=== PATIENT | male | born 1965 | race Caucasian/White ===

== ENCOUNTER 2021-12-25 20:27 | Emergency (ER) | payer OTHER, SELFPAY ==
[2021-12-25 20:27] VITALS: BP 153/100; PULSE 67; RESP 14; TEMP 36.1; O2SAT 96; BMI 28.0
--- NOTE | 2021-12-25 20:52 | EDS_ITS ---
HPI History of Present Illness Chief Complaint: Chest Pain Narrative Narrative: Every [id number] male presenting with left-sided chest pain. He states it started after he ate red sauce with Posta and [place] sausage. He did not have significant dyspepsia but was thinking this was the cause. He states that he felt like it was a grab in his left lower chest wall moved her. He does not have any cardiac history. He does have a history of hypertension which is controlled with lisinopril 20 mg p.o. daily. He states that his father did have an CA but not at an early age. He states he is actively working out. He ran 3 miles earlier in the day without any difficulty. No history of DVT/PE and no risk factors. PFSH PFSH Home Medications glucosamine HCl 500 mg-msm 83 mg-chondroitin 400 mg tablet 1 ea PO DAILY 05/28/13 [History Last Taken Unknown] lisinopril 10 mg tablet 20 mg PO DAILY 05/28/13 [History Last Taken Unknown] omega-3 fatty acids-fish oil 300 mg-1,000 mg capsule 1 ea PO DAILY 05/28/13 [History Last Taken Unknown] Allergy/AdvReac Type Severity Reaction Status Date / Time No Known Allergies Allergy Verified 12/25/21 20:31 Social History Smoking Status: Never smoker ROS ROS ED Constitutional Constitutional ED: Denies chills or fever(s) Eyes Eyes: Denies blurry vision or change in vision ENT ENT ED: Denies rhinorrhea or sore throat Cardiovascular Cardiovascular: Reports as per HPI Respiratory/Chest Respiratory/Chest: Denies cough or dyspnea Gastrointestinal Gastrointestinal: Denies abdominal pain or constipation Genitourinary Genitourinary ED: Denies dysuria or hematuria Musculoskeletal Musculoskeletal: Denies arthralgias or back pain Integumentary Denies abscess or Abrasions Neurologic Neurologic: Denies headache(s) or paresthesias Psychiatric Psychiatric: Denies anxiety or depression EXAM Physical Exam Const Vital Signs: 12/25/21 20:27 12/25/21 20:35 12/25/21 21:23 Temperature 97.0 F L Temperature Source Temporal Pulse Rate 67 66 Respiratory Rate 14 17 Respiratory Effort Normal Blood Pressure 153/100 H 134/100 H Blood Pressure Mean 117 111 Pulse Ox 96 99 Oxygen Delivery Method Room Air Room Air Positive well nourished General Appearance ED: NAD; Negative for pallor HEENT Reports moist mucous membranes normocephalic and atraumatic Eyes PERRL and EOMs intact bilaterally Chest Wall inspection of chest normal and palpation of chest normal Resp normal respiratory effort and clear to auscultation bilaterally Cardio regular rate and regular rhythm GI normal to inspection, nondistended, normoactive bowel sounds Neuro oriented x3 and CN's II-XII intact bilaterally Sensorium / Orientation: awake and alert Motor Exam: strength 5/5 throughout Psych mental status grossly normal Skin no rashes or lesions noted and no wounds General Skin Exam: Negative for jaundice or pallor Heart Score History: Slightly/Non-Suspicious ECG: Normal Age: >45 - <65 years Risk Factors: 1 or 2 Risk Factors Score: 2 MDM MDM MDM Narrative Medical decision making narrative: Patient presenting with resolved chest pain. He states he had intermittent left upper chest wall pain that felt like grab after eating Posta with red sauce at a time and sausage. He does not describe dyspepsia. He states this lasted for about 30 minutes intermittently. He states that worsened every time he would try to move. He does not have any lightheadedness, dizziness, nausea, vomiting, diaphoresis. He has not been short of breath. Patient states he ran 3 miles earlier today. Patient states that his father had an CA however this was not at a young age. Patient states that he is a runner and works out regularly. No history of cardiac disease. HEART score is 2. EKG on my interpretation shows a normal sinus rhythm with ventricular to 68 bpm without sign of ischemic change or dysrhythmia. Chest x-ray on my interpretation shows no acute cardiopulmonary process and the radiologist agree. CBC within normal limits. BMP is also normal. High-sensitivity troponin returned at 8.. Patient currently awaiting delta troponin. He is currently pain-free. High-sensitivity delta troponin is 6. I feel this point the patient stable for discharge home. Patient counseled follow-up with his PCP for outpatient testing. Return precautions discussed. Impression: 1. Chest pain Lab Data Attestation: I reviewed the patient's lab results. Labs: Laboratory Results - last 24 hr 12/25/21 12/25/21 12/25/21 20:30 20:30 22:30 WBC 8.2 RBC 5.40 Hgb 16.1 Hct 47.3 MCV 87.6 MCH 29.8 MCHC 34.0 RDW Std Deviation 36.9 RDW Coeff of Jhonatan 11.5 L Plt Count 238 MPV 11.7 Immature Gran % (Auto) 0.200 Neut % (Auto) 56.4 Lymph % (Auto) 30.3 Pettis % (Auto) 9.8 Eos % (Auto) 2.9 Baso % (Auto) 0.4 Absolute Neuts (auto) 4.6 Absolute Lymphs (auto) 2.47 Nucleated RBC % 0 Sodium 142 Potassium 3.8 Chloride 106 Carbon Dioxide 28.0 Anion Gap 8 BUN 17 Creatinine 1.18 Estim Creat Clear Calc 73.03 Est GFR (MDRD) Af Amer 82 Est GFR (MDRD) Non-Af 68 BUN/Creatinine Ratio 14.4 Glucose 97 Calcium 9.4 Troponin I High Sens 8 6 Radiography Diagnostic Testing: Clinical Impression(s) from Imaging Studies Chest X-Ray 12/25/21 21:00 IMPRESSION: Normal x-ray examination of the chest. Electronically Signed: Mervat Rodrigues MD at 21:59 EDT Reading Location ID and State: [id number] / Tel , Service support , Discharge Plan Triage Chief Complaint: Chest Pain ED Provider: Robert Rdz Dx/Rx/DC Orders Prescriptions: No Action lisinopril 10 MG tablet 20 mg PO DAILY omega-3 fatty acids-fish oil 1 EACH capsule 1 ea PO DAILY glucosamine [id number] 1 EACH tablet 1 ea PO DAILY Primary Care Provider: Anum Kimball Referrals: Anum Kimball MD [Primary Care Provider] - Disposition Disposition: Home, Self Care
--- NOTE | 2021-12-25 20:52 | EKG12_ITS ---
Test Reason : CP Blood Pressure : / mmHG Vent. Rate : 068 BPM Atrial Rate : 068 BPM P-R Int : 156 ms QRS Dur : 092 ms QT Int : 396 ms P-R-T Axes : 048 006 034 degrees QTc Int : 421 ms Normal sinus rhythm Septal MD, age undetermined, cannot be excluded Confirmed by MARIE STORY, ASH ([id number]), newspaper managing editor ANDREW PEÑALOZA ([id number]) on 12/27/2021 9:26:19 AM Referred By: NATALY Confirmed By:ASH SALAZAR MD
[2021-12-25] MEDS: Aspirin 81 MG TAB.CHEW 324 MG PO (21:00)
--- NOTE | 2021-12-25 21:00 | RAD_ITS ---
STUDY: X-RAY CHEST REASON FOR EXAM: Male, 56 years old. chest pain TECHNIQUE: Single AP portable view of the chest. COMPARISON: None. FINDINGS: The lungs are clear and expanded. There is no demonstrated pleural abnormality. Normal size heart. Normal mediastinum and albert. Normal visualized pulmonary arteries. Normal visualized aortic arch and descending thoracic aorta. Normal visualized thoracic spine. Normal visualized ribs, clavicles, and shoulders. There is no demonstrated abnormality of the visualized soft tissue structures of the upper abdomen. RAD/Chest 1 View (Portable) IMPRESSION: Normal x-ray examination of the chest. Electronically Signed: Mervat Rodrigues MD at 21:59 EDT Reading Location ID and State: [id number] / Tel , Service support ,
[2021-12-25 21:08] LABS: Absolute Lymphocyte Count 2.47 X10^3/uL (0.83-4.51); Absolute Neutrophil Count 4.6 X10^3/uL (2.0-7.7); Basophil# 0.03 X10^3/uL; Basophil% 0.4 % (0-1); Eosinophil# 0.24 X10^3/uL; Eosinophils% 2.9 % (0-5); Hematocrit 47.3 % (40-54); Hemoglobin 16.1 g/dL (13.0-16.5); Lymphocyte # 2.47 X10^3/ul (0.83-4.51); Lymphocyte % 30.3 % (19-41); Mean Corpuscular Hgb 29.8 pg (27.0-32.0); Mean Corpuscular Volume 87.6 fL (80-94); Mean Platelet Vol. 11.7 fl (6.2-12.0); Monocyte% 9.8 % (0-10); NRBC Flagged by Analyzer 0 % (0-5); Neutrophil # 4.59 X10^3/uL (2.7-7.7); Neutrophil % 56.4 % (47-70); Platelet Count 238 K/mm3 (150-450); RBC Distribution Width CV 11.5 % (11.6-14.6); RBC Distribution Width SD 36.9 fl (35.1-43.9); White Blood Count 8.2 K/mm3 (4.4-11.0)
[2021-12-25 21:23] VITALS: BP 134/100; PULSE 66; RESP 17; O2SAT 99
[2021-12-25 21:30] LABS: Anion Gap 8 (5-15); BUN 17 mg/dL (7-18); BUN/Creat Ratio 14.4 RATIO (10-20); Calcium,Total 9.4 mg/dL (8.5-10.1); Chloride 106 mmol/L (98-107); Creatinine, Serum 1.18 mg/dL (0.70-1.30); EST Glomerular Filtration Rate 68 mL/min (>60); Est Glom Filt Rate - Afr Amer 82 mL/min (>60); Estimated Creatinine Clearance 73.03 ml/min; Glucose 97 mg/dL (74-106); Potassium 3.8 mmol/L (3.5-5.1); Sodium Level 142 mmol/L (136-145); Troponin-I HS (w/2H Reflex) 8 pg/mL (3.0-78.0)
[2021-12-25 23:03] LABS: Reflex Troponin-HS? (from REC) Y
[2021-12-25 23:26] LABS: Troponin-I HS 6 pg/mL (3.0-78.0)
[2021-12-25 23:56] VITALS: BP 124/85; PULSE 59
== END 2021-12-25 23:58 | disposition home or self-care (01) ==
PROVIDERS: Emergency Provider Student in an Organized Health Care Education/Training Program; PCP Internal Medicine; Visit Provider Student in an Organized Health Care Education/Training Program
DX: R07.9 Chest pain, unspecified (principal); I10 Essential (primary) hypertension; Z82.49 Family history of ischemic heart disease and other diseases of the circulatory system
CPT/HCPCS: 71045; 80048; 84484; 85025; 93005; 99285; A4216

== ENCOUNTER 2023-06-30 20:35 | Emergency (ER) | payer OTHER, SELFPAY ==
[2023-06-30 20:37] VITALS: BP 178/97; PULSE 84; RESP 19; TEMP 36.4; O2SAT 96; BMI 28.5
--- NOTE | 2023-06-30 21:08 | CT_ITS ---
EXAM: CT HEAD WITHOUT INTRAVENOUS CONTRAST CLINICAL INDICATION: TRAUMA TECHNIQUE: Multiple axial images were obtained of the head without intravenous contrast. CTDIvol = ( 44.99 ) mGy, DLP = ( 1365.60 ) mGycm This CT exam was performed using one or more of the following dose reduction techniques: automated exposure control, adjustment of the mA and/or kV according to patient size, and/or use of iterative reconstruction technique. COMPARISON: No relevant prior studies available. FINDINGS: BRAIN AND EXTRA-AXIAL SPACES: Unremarkable. No intra- or extra-axial hemorrhage. No evidence of acute infarct. No intracranial mass or mass effect. There is preservation of the curran/white matter interface. Posterior fossa structures are unremarkable. Ventricles are appropriate for age. No hydrocephalus. Basal cisterns are patent. BONES/JOINTS: Unremarkable. No discrete lytic or blastic abnormalities. SINUSES: Unremarkable as visualized. Clear. MASTOID AIR CELLS: Unremarkable. Clear. ORBITS: Visualized globes, extraocular muscles, optic nerves and retrobulbar fat appear unremarkable. Left lateral broad-based scalp edema/hematoma. CT/Brain/Head without Contrast IMPRESSION: No acute intracranial pathology. No acute calvarial fracture. Left lateral broad-based scalp edema/hematoma. Electronically Signed: Michael Smyth MD at 22:01 EDT ,
--- NOTE | 2023-06-30 21:08 | CT_ITS ---
EXAM: CT MAXILLOFACIAL WITHOUT INTRAVENOUS CONTRAST CLINICAL INDICATION: TRAUMA TECHNIQUE: Helically acquired images were obtained of the face without intravenous contrast. CTDIvol = ( 29.38 ) mGy, DLP = ( 1365.60 ) mGycm This CT exam was performed using one or more of the following dose reduction techniques: automated exposure control, adjustment of the mA and/or kV according to patient size, and/or use of iterative reconstruction technique. COMPARISON: No relevant prior studies available. FINDINGS: BONES/JOINTS: Degenerative changes of the cervical spine at multiple levels. No discrete lytic or blastic abnormalities. No acute facial fracture. SOFT TISSUES: Unremarkable. No focal subcutaneous swelling. No discrete fluid collections. ORBITS: Unremarkable. Both globes are unremarkable. Extraocular muscles are normal. Retrobulbar fat appears unremarkable. SINUSES: Mild scattered paranasal sinus mucosal thickening. No air-fluid levels above the paranasal sinuses. MASTOID AIR CELLS: Unremarkable as visualized. Clear. DENTAL: No acute findings. No periodontal osseous erosion. CT/Sinus/Facial Bone IMPRESSION: No acute or healing fracture or malalignment. Electronically Signed: Michael Smyth MD at 22:25 EDT ,
--- NOTE | 2023-06-30 21:09 | EX.ED.DYSGE1 ---
HPI History of Present Illness Chief Complaint: Head Injury Informant: patient and spouse/S.O. 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 No reported loss of consciousness. The patient notes some change in hearing of the left ear. He states the ear itself is not painful. Shortly after this happened he cleared his throat and there was some slight amount of blood with it. He notes a little bit of left jaw discomfort when he opens his mouth but notes that he did not get hit in that area. No vision changes. No nausea vomiting. He is not on anticoagulants. [facility] Medical History Hypertension Home Medications glucosamine HCl 500 mg-msm 83 mg-chondroitin 400 mg tablet 1 ea PO DAILY 05/28/13 [History Last Taken Unknown] lisinopril 10 mg tablet 20 mg PO DAILY 05/28/13 [History Last Taken Unknown] omega-3 fatty acids-fish oil 300 mg-1,000 mg capsule 1 ea PO DAILY 05/28/13 [History Last Taken Unknown] Allergy/AdvReac Type Severity Reaction Status Date / Time No Known Allergies Allergy Verified 06/30/23 20:39 Social History Smoking Status: Never smoker ROS ROS ED Constitutional Constitutional ED: Denies chills, fever(s) or weight loss Eyes Eyes: Denies blurry vision, change in vision or diplopia ENT ENT ED: Reports other Details: See history of present illness change in hearing blood with clearing throat ; Denies ear pain, rhinorrhea or sore throat Cardiovascular Cardiovascular: Denies chest pain, orthopnea, palpitations or racing heartbeat Respiratory/Chest Respiratory/Chest: Denies cough, dyspnea or orthopnea Gastrointestinal Gastrointestinal: Denies abdominal pain, diarrhea, nausea or vomiting Genitourinary Genitourinary ED: Denies dysuria, hematuria or urinary frequency Musculoskeletal Musculoskeletal: Denies arthralgias or myalgias Integumentary Denies abscess or rash Neurologic Neurologic: Reports headache(s) and other Details: No seizure ; Denies paresthesias or weakness Psychiatric Psychiatric: Denies anxiety, depression, suicidal ideation or suicidal thoughts Endocrine Endocrinology: Denies polydipsia, polyphagia or polyuria Allergic/Immunologic Allergic/Immunologic ED: Denies mouth swelling, tongue swelling or urticaria EXAM Physical Exam Const Vital Signs: 06/30/23 20:37 Temperature 97.6 F L Temperature Source Temporal Pulse Rate 84 Respiratory Rate 19 H Blood Pressure 178/97 H Blood Pressure Mean 124 Pulse Ox 96 Oxygen Delivery Method Room Air Positive well nourished and well developed General Appearance ED: well developed HEENT Reports normocephalic and moist mucous membranes HEENT Narrative: Small hematoma noted over the left parietal region. No palpable bony depression. I do not appreciate any hematomas of the ear. There is a small amount of blood behind the left tympanic membrane. No blood in the oropharynx noted. There is no focal tenderness along the mandible. He does note discomfort when I have him open and close. No malocclusion Eyes PERRL and EOMs intact bilaterally Neck no lymphadenopathy, supple and no JVD Resp normal respiratory effort and clear to auscultation bilaterally Cardio regular rate, regular rhythm and no murmurs GI normal to inspection, nondistended, normoactive bowel sounds and non-tender Palpation: soft Back/Spine no CVA tenderness and normal ROM Extremity normal to inspection General Extremety ED: Negative for edema General Extremity: Negative for edema Neuro oriented x3 and CN's II-XII intact bilaterally Sensorium / Orientation: alert Motor Exam: strength 5/5 throughout Psych mental status grossly normal Mood & Affect: Negative for depressed or tearful Skin no rashes or lesions noted and no wounds MDM MDM MDM Narrative Medical decision making narrative: CT of the brain and maxillofacial bones did not demonstrate any acute fracture or intracranial bleed. At this point patient be discharged home. Would recommend supportive care. Follow-up with ENT if hearing change does not resolve. History & Record Review Discussion w/independent historian: Patient and Significant other Radiography Diagnostic Testing: Clinical Impression(s) from Imaging Studies Brain CT 06/30/23 21:08 IMPRESSION: No acute intracranial pathology. No acute calvarial fracture. Left lateral broad-based scalp edema/hematoma. Electronically Signed: Michael Smyth MD at 22:01 EDT Reading Location ID and State: [facility] / [place] Tel , Service support , Facial/Sinus 06/30/23 21:08 IMPRESSION: No acute or healing fracture or malalignment. Electronically Signed: Michael Smyth MD at 22:25 EDT , Discharge Plan Triage Chief Complaint: Head Injury ED Provider: Sergey Phillips Dx/Rx/DC Orders Clinical Impression: Left parietal scalp hematoma, Hematotympanum of left ear, Head injury Instructions: ED Head Injury (Adult) Prescriptions: No Action lisinopril 10 MG tablet 20 mg PO DAILY omega-3 fatty acids-fish oil 1 EACH capsule 1 ea PO DAILY glucosamine [id number] 1 EACH tablet 1 ea PO DAILY Primary Care Provider: Anum Kimball Referrals: Best Gonzalez MD [Med Staff - Active Staff] - As Needed (Schedule appointment if your hearing change does not improve/resolve.) Anum Kimball MD [Primary Care Provider] - 1 Week
[2023-06-30 22:43] VITALS: BP 142/67; PULSE 74; RESP 18; TEMP 36.9; O2SAT 99
== END 2023-06-30 22:45 | disposition home or self-care (01) ==
LOC: ED 21:43
PROVIDERS: Emergency Provider Emergency Medicine; PCP Internal Medicine; Visit Provider Emergency Medicine
DX: S00.03XA Contusion of scalp, initial encounter (principal); W21.03XA Struck by baseball, initial encounter; Y93.64 Activity, baseball; I10 Essential (primary) hypertension; Z79.899 Other long term (current) drug therapy
CPT/HCPCS: 70450; 70486; 99282

== ENCOUNTER → 2024-06-01 | Outpatient (CLI) | payer OTHER, SELFPAY ==
--- NOTE | 2024-06-01 07:32 | US_ITS ---
EXAM: US Abdomen Limited, Right Upper Quadrant CLINICAL INDICATION: TECHNIQUE: Real-time ultrasound of the right upper quadrant with image documentation. COMPARISON: No relevant prior studies available. FINDINGS: LIVER: Liver measures 13.4 cm. Hepatopetal portal flow main portal vein. No intrahepatic bile duct dilation. GALLBLADDER: Cholelithiasis and gallbladder sludge. Barroso sign was not reported by the asp net mvc developer. COMMON BILE DUCT: Unremarkable as visualized. No stones. No dilation. Common bile duct measures 0.4 cm in diameter. PANCREAS: Unremarkable as visualized. RIGHT KIDNEY: Unremarkable. No stones. No hydronephrosis. The right kidney measures 12.2 x 6.8 x 5.8 cm. US/Abdomen Limited IMPRESSION: Cholelithiasis and gallbladder sludge. Reading [facility]
== END | disposition home or self-care (01) ==
PROVIDERS: PCP Internal Medicine; Referring Provider Nurse Practitioner Acute Care; Visit Provider Nurse Practitioner Acute Care
DX: R10.13 Epigastric pain (principal)
CPT/HCPCS: 76705

== ENCOUNTER 2024-07-17 12:17 | Day surgery (SDC) | payer OTHER, SELFPAY ==
[2024-07-17] VITALS (10 sets, daily range): BP systolic 123–149; BP diastolic 89–95; PULSE 64–96; RESP 16; TEMP 36.1–36.6; O2SAT 94–97; BMI 28.6
[2024-07-17] MEDS: Lactated Ringers 1,000 ML 15 ML IV (12:54)
--- NOTE | 2024-07-17 13:06 | PCM.PRE.AN2 ---
ASA Classification* ASA Classification ASA Classification: 1 Assessment & Plan Anesthesia* Anesthesia Assessment Anesthesia Assessment: Discussed sedation and/or anesthesia options, risks, benefits, and alternatives with patient/parents/legal guardian/POA. Questions invited. The patient/parents/legal guardian/POA seems to understand and agrees to proceed with anesthesia plan. Reviewed the physical assessment, medical history, allergy history and patient home medications list prior to surgery/procedure/anesthetic and documented any changes. Performed airway and anesthesia risk assessments. Anesthesia Type Anesthesia Type: MAC History Source History Obtained from:: Patient and Chart Anesthesia Focused Assessment* Temperature: 97.9 F Pulse Rate: 64 Blood Pressure: 149/95 Respiratory Rate: 16 Pulse Ox: 97 Oxygen Delivery Method: Room Air Airway Assessment Mouth opens: >3 cm Mallampati Score: I Teeth Condition: Intact Neck Range of motion (ROM): Full ROM Focused Labs Anesthesia Preop lab: CBC WBC 8.2 K/mm3 (4.4-11.0) 12/25/21 20:30 12/25/21 RBC 5.40 M/mm3 (4.6-6.2) 12/25/21 20:30 12/25/21 Hgb 16.1 g/dL (13.0-16.5) 12/25/21 20:30 12/25/21 Hct 47.3 % (40-54) 12/25/21 20:30 12/25/21 Plt Count 238 K/mm3 (150-450) 12/25/21 20:30 12/25/21 CHEMISTRY Potassium 3.8 mmol/L (3.5-5.1) 12/25/21 20:30 12/25/21 Sodium 142 mmol/L (136-145) 12/25/21 20:30 12/25/21 BUN 17 mg/dL (7-18) 12/25/21 20:30 12/25/21 Creatinine 1.18 mg/dL (0.70-1.30) 12/25/21 20:30 12/25/21 Glucose 97 mg/dL (74-106) 12/25/21 20:30 12/25/21 COAG Pre-Assessment Diagnosis/Proposed Procedure Planned Operative Procedure(s): EGD Anesthesia History 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 When Was Last Pacemaker Check QUESTION #4 FULL TEXT: You/Your Family Experience fever (hyperthermia) with Anesthesia Last Oral Intake Last Oral intake: Last Oral Intake NPO since 22:00 07/17/24 12:37 Meds taken in AM with sips of Yes 07/17/24 12:37 water? Meds patient instructed to take am of surgery PONV PONV - bad work gatherer: PONV - bad work gatherer Female No 07/14/24 12:44 HX of Motion Sickness No 07/14/24 12:44 HX of N/V After Surgery No 07/14/24 12:44 Non-Smoker No 07/14/24 12:44 Duration of Surgery greater No 07/14/24 12:44 than 60 minutes Number of Risk Factors PONV Score Height & Weight Height & Weight: Anesthesia: Height & Weight Height 5 ft 10 in 07/17/24 12:37 Weight: 90.5 kg 07/17/24 12:37 Body Mass Index (BMI) 28.6 07/17/24 12:37 Respiratory Assessment Respiratory Assessment - bad work gatherer: Respiratory Tract Infection Hx - bad work gatherer Hx Respiratory Tract Infection No 07/14/24 12:44 STOP Sleep Apnea STOP Sleep Apnea - bad work gatherer: STOP Sleep Apnea - bad work gatherer Hx Hypertension Yes 07/14/24 12:44 Hx Sleep Apnea No 07/14/24 12:44 CPAP BIPAP Do you snore loudly (louder No 07/14/24 12:44 than talking or can be heard Do you often feel tired/ No 07/14/24 12:44 fatigued/ sleepy during daytime? Has anyone observed you stop No 07/14/24 12:44 breathing during sleep? STOP Results Negative 07/14/24 12:44 QUESTION #5 FULL TEXT : Do you snore loudly (louder than talking or can be heard through closed doors)? Tobacco Use History Tobacco Use History - bad work gatherer: Tobacco Use History - bad work gatherer Tobacco Use Smoking Status Current every day smoker 07/14/24 12:44 Hx Tobacco Use Yes 07/14/24 12:44 Years Smoking Packs Smoked per Day Smoking Cessation Date was within the last 15 years Hx Smoking Cessation Date Hx Smoking Cessation Counseling Hematologic Medial History Hematologic Hx - bad work gatherer: Hematologic Medical Hx - ground layer Hx of Blood Transfusion No 07/14/24 12:44 Hx of Transfusion in last 3 No 07/14/24 12:44 Months Date of Last Transfusion (if within last 3 months) Ever experience any problems No 07/14/24 12:44 with transfusion(s)? Specify any problems Hx of Preganancy in last 3 N/A 07/14/24 12:44 Months Nurse Filling Out Transfusion EHPERTH AMBOY 07/14/24 12:44 & Questions: Date: 07/14/24 07/14/24 12:44 Time: 12:53 07/14/24 12:44 Patient unable to answer at this time (ie. confused, unrespo /Reproduction History /Reproductive History - bad work gatherer: /Reproductive Hx- bad work gatherer Hx Now Gestational Age (in weeks): EDC: Hx Hx Para Hx Section SAB Active Medications Active Medications: Current Medications Generic Name Dose Route Start Last Admin Trade Name Freq PRN Reason Stop Dose Admin Lactated Ringer's 1,000 mls @ 15 mls/hr 07/17/24 12:30 07/17/24 12:54 IV 15 mls/hr .Q48H MARISA Administration PFSH Medical History Wears hearing aid Wears glasses Migraine headache Gastric reflux History of stress test Hypertension Home Medications ?Medication ?Instructions ?Recorded ?Last Taken ?Type glucosamine HCl 500 mg-msm 83 1 ea PO DAILY 05/28/13 Unknown History mg-chondroitin 400 mg tablet omega-3 fatty acids-fish oil 300 1 ea PO DAILY 05/28/13 07/12/24 History mg-1,000 mg capsule lisinopril 10 mg tablet 40 mg PO DAILY 05/21/24 07/16/24 History pantoprazole 40 mg tablet,delayed 40 mg PO QDAY #30 tabs 05/21/24 Unknown Rx release amlodipine 2.5 mg tablet 2.5 mg PO DAILY blood pressure 07/14/24 07/17/24 09:00 History Allergy/AdvReac Type Severity Reaction Status Date / Time No Known Allergies Allergy Verified 07/17/24 12:35 Surgical History History of repair of ACL History of knee surgery Social History Smoking Status: Current every day smoker tobacco type: smokeless tobacco Review of Systems (Anesthesia) ROS Narrative System reviewed and no additional complaints, except as documented.
--- NOTE | 2024-07-17 13:30 | EGD_PTH ---
PATIENT: SVETA RUSSO LOC: EN U#:[id number] AGE/SX: 59/M ROOM: RE07/17/[address]: Dr. Virgil Alarcon DO : 1965 BED: DIS: 07/17/2024 SPEC #: [id number] RECD: 07/17/24 16:24 STATUS: SANDRA MARGARITA #: [id number] JIM: 07/17/24 13:[address]: Virgil Alarcon DEPT: SURGICAL PATHOLOGY RECD BY: Melissa Colón ENTERED: 07/20/24 07:18 SP TYPE: EGD BIOPSY SRIDEVI DR: Dr. Anum Kimball MD Tissues: Esophagus, NOS Procedures: Surgery Specimen Level IV HEADER OPERATION: EGD and biopsy PRE-OP DIAGNOSIS: Epigastric pain TISSUE SUBMITTED: A- Distal esophagus biopsy MICROSCOPIC DIAGNOSIS A. Esophagus, distal, biopsy: Columnar mucosa negative for goblet cell metaplasia. No squamous mucosa seen. MICROSCOPIC DESCRIPTION Slides are reviewed. GROSS DESCRIPTION A. Received in formalin in a container labeled with the patient's name, date of , and distal esophagus biopsy are 2 sales-pink fragments of mucosal tissue measuring 0.4 x 0.3 x 0.3 cm and 0.6 x 0.3 x 0.2 cm. Submitted in toto in A1. B 07-20-2024 CPT:45133
--- NOTE | 2024-07-17 14:23 | PCM.HP.STD ---
HPI - General General Date of Admission: 07/17/24 Date of Service: 07/17/24 Chief Complaint: abdominal pain HPI Narrative SVETA RUSSO, is a 59 M who presents to the office today for - since January - cheese balls and little sausages - caused terrible abdominal pain - had another episode of pain in February - reports these episodes have mendez intermittent and coming more frequent - feels bloated - tries to alleviate symptoms with Tums - 10 pain - hot shower helps make pain tolerable - episode if pain lasted last night 4 hours - this is an epigastric pain that radiates out - sharp and constant - denies any emesis - denies any change in bowel habits - denies any weight loss - reports his water intake is not great - onset of pain yesterday was 3-4 hours after eating - dinner last night he had 2 Brats, chicken rice and baked beans - Lunch - burger and fries - chews tobacco - HB intermittent - 6g of Creatine daily - Caffeine 40oz a day - denies any marijuana use COLON - 6 years ago - he reports this revealed a polyp - he reports labs were normal Fall 2023 - reports a h/o polyps - reports a h/o GB polyp [facility] Medical History Wears hearing aid Wears glasses Migraine headache Gastric reflux History of stress test Hypertension Home Medications ?Medication ?Instructions ?Recorded ?Last Taken ?Type glucosamine HCl 500 mg-msm 83 1 ea PO DAILY 05/28/13 Unknown History mg-chondroitin 400 mg tablet omega-3 fatty acids-fish oil 300 1 ea PO DAILY 05/28/13 07/12/24 History mg-1,000 mg capsule lisinopril 10 mg tablet 40 mg PO DAILY 05/21/24 07/16/24 History pantoprazole 40 mg tablet,delayed 40 mg PO QDAY #30 tabs 05/21/24 Unknown Rx release amlodipine 2.5 mg tablet 2.5 mg PO DAILY blood pressure 07/14/24 07/17/24 09:00 History Allergy/AdvReac Type Severity Reaction Status Date / Time No Known Allergies Allergy Verified 07/17/24 12:35 Surgical History History of repair of ACL History of knee surgery Social History Smoking Status: Current every day smoker tobacco type: smokeless tobacco ROS Constitutional Constitutional: Denies fatigue, fever(s), poor appetite, weight gain or weight loss Gastrointestinal Gastrointestinal: Denies belching, bloating, change in bowel habits, change in stool character, chewing difficulty, coffee ground emesis, constipation, cramping, diarrhea, dyspepsia, dysphagia, early satiety, excessive flatus, fecal incontinence, heartburn, hematemesis, hematochezia, hemorrhoids, loose stools, melena, nausea, odynophagia, rectal bleeding, tenesmus, vomiting or weight changes Vital Signs Vital Signs Vital Signs: 07/17/24 12:37 07/17/24 12:37 07/17/24 13:10 Temperature 97.9 F 97.9 F Temperature Source Temporal Pulse Rate 64 64 Respiratory Rate 16 16 Respiratory Pattern Normal Blood Pressure 149/95 H 149/95 H Blood Pressure Mean 113 Blood Pressure Source Monitor Blood Pressure Position Sitting Blood Pressure Location Right Arm Pulse Ox 97 97 Oxygen Delivery Method Room Air Room Air Weight Weight: 199 lb 8.293 oz Body Mass Index (BMI) 28.6 Physical Exam Const alert, oriented x3, no apparent distress and healthy appearing General Appearance: cooperative GI normal to inspection, nondistended, normoactive bowel sounds, soft to palpation, non-tender and non-distended Percussion: normal to percussion Rectal Exam: deferred Assessment & Plan Assessment/Plan (1) Epigastric pain: PLAN: Assessment and Plan Assessment and Plan (1) Epigastric pain: Status: Acute (2) Abdominal symptoms: Orders: Orders Abdomen Limited 06/01/24 R10.13 - Epigastric pain Medications: New pantoprazole take 30 minutes before breakfast daily 40 mg PO QDAY 30 tabs 3RF Plan 59y/o male presents for consultation with complaints of epigastric abdominal pain and bloating. Episodes of pain began January 2024 after eating a fatty meal. He has continued to have intermittent episodes of pain. Episodes are becoming more frequent and lasting up to 4 hours. Pain is sharp, epigastric and radiates out, but denies any radiation to his back. He does experience occasional nausea and HB. His last episode of pain was last night, lasted 4 hours and reports pain was 9/10. He is fearful to eat today. I have started him on a daily PPI and scheduled an ABD US and EGD. Patient Instructions: Start PPI daily ABD US EGD Limit use of alcohol and fatty foods Smoking cessation recommended (chew) - https://www.cdc.gov/tobacco/about/how-to-quit.html High fiber/Low fat diet Plan Details Follow Up: 3 Months
--- NOTE | 2024-07-17 14:45 | PCM.POST.ANE ---
Anesthesia: Postop Eval I Current Vital Signs Temperature: 97 F Pulse Rate: 96 Blood Pressure: 123/89 Respiratory Rate: 16 Pulse Ox: 97 Oxygen Delivery Method: Room Air Assessment Airway patent: Yes Spontaneous unlabored respirations: Yes Mental status: Awake and Calm nausea: No Vomiting: No Anesthesia Complication: No Fluid Hydration Crystalloid volume administer (ml): 500 Total IV fluid infused: 500 Progress Note Anesthesia document: Postop Eval 1 completed: Yes
--- NOTE | 2024-07-17 14:48 | OP.EGD_ITS ---
Patient Name: Joshua Dudley Procedure Date: 07/17/2024 2:23 PM Date of : 1965 Age: 59 Procedure: Upper GI endoscopy Indications: Epigastric abdominal pain, Abdominal pain in the right upper quadrant, Heartburn Providers: Virgil Alarcon DO Referring MD: Anum Kimball Medicines: Monitored Anesthesia Care Patient Profile: This is a 59 year old male. Refer to note in patient chart for documentation of history and physical. Patient has symptoms of acute right upper quadrant abdominal pain. Complications: No immediate complications. Procedure: Pre-Anesthesia Assessment: - Prior to the procedure, a History and Physical was performed, and patient medications and allergies were reviewed. The patient is competent. The risks and benefits of the procedure and the sedation options and risks were discussed with the patient. All questions were answered and informed consent was obtained. Patient identification and proposed procedure were verified by the physician in the pre-procedure area. Mental Status Examination: alert and oriented. Airway Examination: normal oropharyngeal airway and neck mobility. Respiratory Examination: clear to auscultation. CV Examination: normal. Prophylactic Antibiotics: The patient does not require prophylactic antibiotics. Prior Anticoagulants: The patient has taken no anticoagulant or antiplatelet agents except for NSAID medication. ASA Grade Assessment: II - A patient with mild systemic disease. After reviewing the risks and benefits, the patient was deemed in satisfactory condition to undergo the procedure. The anesthesia plan was to use monitored anesthesia care (MAC). Immediately prior to administration of medications, the patient was re-assessed for adequacy to receive sedatives. The heart rate, respiratory rate, oxygen saturations, blood pressure, adequacy of pulmonary ventilation, and response to care were monitored throughout the procedure. The physical status of the patient was re-assessed after the procedure. After obtaining informed consent, the endoscope was passed under direct vision. Throughout the procedure, the patient's blood pressure, pulse, and oxygen saturations were monitored continuously. The Endoscope was introduced through the mouth, and advanced to the third part of the duodenum. Small bowel enteroscopy was deemed necessary. The upper GI endoscopy was accomplished with ease. The patient tolerated the procedure well. Scope In: 2:41:01 PM Scope Out: 2:43:57 PM Total Procedure Duration Time 0 hours 2 minutes 56 seconds Findings: LA Grade A (one or more mucosal breaks less than 5 mm, not extending between tops of 2 mucosal folds) esophagitis with no bleeding was found 37 to 39 cm from the incisors. Biopsies were taken with a cold forceps for histology. Verification of patient identification for the specimen was done. Estimated blood loss was minimal. The entire examined stomach was normal. The exam of the duodenum was otherwise normal. Impression: - LA Grade A reflux esophagitis with no bleeding. Biopsied. - Normal stomach. Recommendation: - Discharge patient to home. - Resume previous diet. - Continue present medications. - Await pathology results. Procedure Code(s): --- Professional --- 64871, Small intestinal endoscopy, enteroscopy beyond second portion of duodenum, not including ileum; with biopsy, single or multiple CPT copyright 2021 [employer]. All rights reserved. The codes documented in this report are preliminary and upon data coder operator review may be revised to meet current compliance requirements. Virgil Alarcon DO 07/17/2024 2:47:44 PM This report has been signed electronically. Number of Addenda: 0 Note Initiated On: 07/17/2024 2:23 PM
--- NOTE | 2024-07-17 14:48 | OP.CCLET_ITS ---
07/17/2024 Anum Kimball [address] [place] [address] Re : Upper GI endoscopy procedure for Joshua Dudley Dear Dr. Kimball This procedure was performed on Wednesday, July 17, 2024. My impressions and recommendations are as follows: Impressions : - LA Grade A reflux esophagitis with no bleeding. Biopsied. - Normal stomach. Recommendations : - Discharge patient to home. - Resume previous diet. - Continue present medications. - Await pathology results. My findings are described in the full procedure note, which is enclosed. If I can be of further assistance, please feel free to contact me at . Sincerely, Virgil Alarcon, 07/17/2024 2:47:44 PM This report has been signed electronically.
--- NOTE | 2024-07-17 14:52 | POSTOPAN2_ITS ---
Anesthesia Postop Eval I Sum Postop Eval Completion status Anesthesia document: Postop Eval 1 completed: Yes Anesthesia Postop Eval I Summary Anesthesia Postop Eval I Summary: Anesthesia Postop Eval I: Assessment Summary Airway patent Yes 07/17/24 14:46 DRAFTER [email or web address] Spontaneous unlabored Yes 07/17/24 14:46 DRAFTER [email or web address] respirations Mental status Awake,Calm 07/17/24 14:46 DRAFTER [email or web address] nausea No 07/17/24 14:46 DRAFTER [email or web address] Vomiting No 07/17/24 14:46 DRAFTER [email or web address] Anesthesia Postop Eval I: Fluid Summary Crystalloid volume administer 500 07/17/24 14:46 DRAFTER [email or web address] (ml) Colloids volume administered ( ml) Blood Product volume administered (ml) Total IV fluid infused 500 07/17/24 14:46 DRAFTER [email or web address] Anesthesia Postop Eval I: Summary Notes Anesthesia Complication No 07/17/24 14:46 DRAFTER [email or web address] Anesthesia Complication Comment: Post-operative progress note Anesthesia: Postop Eval II Evaluation Mental status: Awake and Calm Pain Level: 0 nausea: No Vomiting: No Complications Anesthesia Complication: No
--- NOTE | 2024-07-17 14:52 | PCM.POSTANE2 ---
Anesthesia Postop Eval I Sum Postop Eval Completion status Anesthesia document: Postop Eval 1 completed: Yes Anesthesia Postop Eval I Summary Anesthesia Postop Eval I Summary: Anesthesia Postop Eval I: Assessment Summary Airway patent Yes 07/17/24 14:46 TALENT PROGRAM [email or web address] Spontaneous unlabored Yes 07/17/24 14:46 TALENT PROGRAM [email or web address] respirations Mental status Awake,Calm 07/17/24 14:46 TALENT PROGRAM [email or web address] nausea No 07/17/24 14:46 TALENT PROGRAM [email or web address] Vomiting No 07/17/24 14:46 TALENT PROGRAM [email or web address] Anesthesia Postop Eval I: Fluid Summary Crystalloid volume administer 500 07/17/24 14:46 TALENT PROGRAM [email or web address] (ml) Colloids volume administered ( ml) Blood Product volume administered (ml) Total IV fluid infused 500 07/17/24 14:46 TALENT PROGRAM [email or web address] Anesthesia Postop Eval I: Summary Notes Anesthesia Complication No 07/17/24 14:46 TALENT PROGRAM [email or web address] Anesthesia Complication Comment: Post-operative progress note Anesthesia: Postop Eval II Evaluation Mental status: Awake and Calm Pain Level: 0 nausea: No Vomiting: No Complications Anesthesia Complication: No
== END 2024-07-17 15:33 | disposition home or self-care (01) ==
LOC: EN 12:19 → AC 12:22
PROVIDERS: PCP Internal Medicine; Referring Provider Internal Medicine; Visit Provider Internal Medicine Gastroenterology
PROC: 0DJ08ZZ Inspection of Upper Intestinal Tract, Via Natural or Artificial Opening Endoscopic (ICD-10-PCS; CPT 43235; principal; 2024-07-17 13:25)
DX: K21.00 Gastro-esophageal reflux disease with esophagitis, without bleeding (principal); I10 Essential (primary) hypertension; F17.220 Nicotine dependence, chewing tobacco, uncomplicated; Z79.899 Other long term (current) drug therapy
CPT/HCPCS: 44361; 88305